=== PATIENT | male | born 1960 | race Hispanic/Latino ===

== ENCOUNTER 2022-02-18 11:46 | Emergency (ER) | payer SELFPAY ==
[2022-02-18] MEDS ORDERED: Ketorolac Tromethamine 30 MG/ML VIAL ONE (13:04)
== END 2022-02-18 13:32 | disposition home or self-care (01) ==
LOC: ERS 11:46
DX: N48.1 Balanitis (principal); I10 Essential (primary) hypertension; E11.9 Type 2 diabetes mellitus without complications; Z79.84 Long term (current) use of oral hypoglycemic drugs
CPT/HCPCS: 36416; 87070; 87077; 87186; 87205; 96372; 99283; J1885

== ENCOUNTER 2022-02-22 12:42 | Emergency (ER) | payer SELFPAY | END 2022-02-22 15:12 | disposition home or self-care (01) | LOC: ERS 12:42 | DX: N48.1 Balanitis (principal); E11.9 Type 2 diabetes mellitus without complications; I10 Essential (primary) hypertension | CPT/HCPCS: 99283 ==

== ENCOUNTER 2022-07-16 09:08 | Observation (INO) | payer OTHER ==
[2022-07-16 10:44] LABS: #Basophils 0.1 thou/uL (0.0-0.2); #Lymphocytes 1.3 thou/uL (1.20-3.40); #Monocytes 0.4 thou/uL (0.11-0.59); #Neutrophils 7.5 thou/uL (1.40-6.50); %Basophils 0.5 % (0.0-1.0); %Eosinophils 0.4 % (0.0-10.0); %Lymphocytes 13.5 % (21.0-51.0); %Monocytes 4.7 % (0.0-10.0); %Neutrophils 80.9 % (42.0-75.0); Hemoglobin 16.8 g/dL (14.0-18.0); Mean Corpuscular HGB CONC 35.3 g/dL (32.0-36.0); Mean Corpuscular Hemoglobin 33.7 pg (27.0-31.0); Mean Corpuscular Volume 95.6 fl (78.0-98.0); Mean Platelet Volume 7.1 fL (7.4-10.4); Platelet Count 252 10x3/uL (130-400); RBC Distribution Width 10.9 % (11.5-14.5); Red Blood Cell (RBC) Count 4.99 mill/uL (4.70-6.10); White Blood Cell (WBC) Count 9.3 10x3/uL (4.8-10.8)
[2022-07-16 11:08] LABS: ALT (SGPT) 24 U/L (8-55); AST (SGOT) 18 U/L (5-34); Albumin 4.1 g/dL (3.4-4.8); Alkaline Phosphatase 104 U/L (40-110); Anion Gap 18 mmol/L (10-20); BUN (Urea Nitrogen) 12 mg/dL (8.4-25.7); Bilirubin, Total 0.9 mg/dL (0.2-1.2); Calc. Creatinine Clearance 0 mL/min (70-130); Calcium 9.9 mg/dL (7.8-10.44); Carbon Dioxide 23 mmol/L (23-31); Chloride 97 mmol/L (98-107); Estimated GFR 93; Globulin 3.9 g/dL (2.4-3.5); Glucose 291 mg/dL (80-115); Potassium 4.1 mmol/L (3.5-5.1); Sodium 134 mmol/L (136-145)
[2022-07-16] MEDS ORDERED: Fentanyl 100 MCG/2 ML VIAL ONE (11:29)
[2022-07-16] MEDS ORDERED: Boostrix 0.5 ML (Tdap) VIAL (>/=7 yrs of age) ONE (11:29)
[2022-07-16] MEDS ORDERED: Cefepime 2 GM VIAL ONE (13:59)
[2022-07-16] MEDS ORDERED: VANCOMYCIN 1.75 GM/500 ML BAG 1.75 GM in Premix Bag 1 BAG IVPB SCH (14:30)
[2022-07-16] MEDS ORDERED: Senokot S 8.6-50 MG TAB PO PRN (14:46)
[2022-07-16] MEDS ORDERED: Guaifenesin DM 100-10/5 ML UDCUP PO PRN (14:46)
[2022-07-16] MEDS ORDERED: Dextrose 5% in Water 1,000 ML IV PRN (14:46)
[2022-07-16] MEDS ORDERED: Dextrose 50% Abboject 50 ML SYRINGE SLOW IVP PRN (14:46)
[2022-07-16] MEDS ORDERED: Ondansetron PF 4 MG/2 ML Vial IVP PRN (14:46)
[2022-07-16] MEDS ORDERED: Calcium Carbonate 500 MG ChewTAB PO PRN (14:46)
[2022-07-16] MEDS ORDERED: Bisacodyl 10 MG SUPP PR PRN (14:46)
[2022-07-16] MEDS ORDERED: Acetaminophen 325 MG TAB PO PRN (14:46)
[2022-07-16 15:10] LABS: Lactic Acid 1.5 mmol/L (0.5-2.2)
[2022-07-16] MEDS: cefTRIAXone\\ROCEPHIN 1 GM in Sodium Chloride 0.9% 100 ML IVPB SCH (18:07)
[2022-07-16] MEDS: Sodium Chloride 0.9% 1,000 ML IV SCH (18:07)
[2022-07-16] MEDS: metFORMIN 500 MG TAB PO SCH (18:07)
[2022-07-16] MEDS ORDERED: FLU VACC QS2022-23(6MOS UP)/PF 60 MCG/0.5 ML SYRINGE IM ONE (18:15)
[2022-07-16 20:19] VITALS: BMI 27.8
[2022-07-16] MEDS: HumaLOG 300 UNITS/3 ML VIAL SC PRN (21:11)
[2022-07-16] MEDS: Atorvastatin Calcium 40 MG TAB PO SCH (21:11)
[2022-07-17] MEDS: HYDROcodone/Acetaminophen 5/325 mg Tablet PO PRN ×3 (00:10→10:06)
[2022-07-17] MEDS: Sodium Chloride 0.9% 1,000 ML IV SCH (03:26)
[2022-07-17] MEDS: Vancomycin 1 GM in Premix Bag 1 BAG IVPB SCH ×2 (03:26→15:00)
[2022-07-17 05:13] LABS: #Eosinphils 0.1 thou/uL (0.0-0.7); #Lymphocytes 1.3 thou/uL (1.20-3.40); #Monocytes 0.4 thou/uL (0.11-0.59); %Basophils 0.7 % (0.0-1.0); %Eosinophils 1.6 % (0.0-10.0); %Lymphocytes 22.7 % (21.0-51.0); %Monocytes 6.9 % (0.0-10.0); %Neutrophils 68.1 % (42.0-75.0); Hemoglobin 13.9 g/dL (14.0-18.0); Mean Corpuscular HGB CONC 35.1 g/dL (32.0-36.0); Mean Corpuscular Hemoglobin 33.9 pg (27.0-31.0); Mean Corpuscular Volume 96.7 fl (78.0-98.0); Mean Platelet Volume 6.9 fL (7.4-10.4); Platelet Count 215 10x3/uL (130-400); RBC Distribution Width 10.8 % (11.5-14.5); Red Blood Cell (RBC) Count 4.11 mill/uL (4.70-6.10); White Blood Cell (WBC) Count 5.9 10x3/uL (4.8-10.8)
[2022-07-17 05:30] LABS: ALT (SGPT) 15 U/L (8-55); AST (SGOT) 14 U/L (5-34); Albumin 3.2 g/dL (3.4-4.8); Alkaline Phosphatase 70 U/L (40-110); Anion Gap 13 mmol/L (10-20); BUN (Urea Nitrogen) 12 mg/dL (8.4-25.7); Bilirubin, Total 1.1 mg/dL (0.2-1.2); Calc. Creatinine Clearance 111 mL/min (70-130); Calcium 8.4 mg/dL (7.8-10.44); Carbon Dioxide 20 mmol/L (23-31); Chloride 104 mmol/L (98-107); Estimated GFR 103; Globulin 2.9 g/dL (2.4-3.5); Glucose 229 mg/dL (80-115); Potassium 3.8 mmol/L (3.5-5.1); Protein, Total 6.1 g/dL (5.8-8.1); Sodium 133 mmol/L (136-145)
[2022-07-17] MEDS: HumaLOG 300 UNITS/3 ML VIAL SC PRN ×4 (06:11→21:37)
[2022-07-17] MEDS: Lisinopril/Hydrochlorothiazide 20 mg/12.5 mg Tablet PO SCH (10:03)
[2022-07-17] MEDS: Amlodipine 5 MG TAB PO SCH (10:04)
[2022-07-17] MEDS: metFORMIN 500 MG TAB PO SCH ×2 (10:04→16:50)
[2022-07-17] MEDS ORDERED: Clotrimazole 1 % Cream 30 GM TUBE TOP SCH (10:15)
[2022-07-17] MEDS ORDERED: Fluconazole 100 MG TAB PO SCH (10:15)
[2022-07-17] MEDS ORDERED: Clotrimazole 1% Cream 15 GM TUBE TOP SCH (10:15)
[2022-07-17] MEDS: cefTRIAXone\\ROCEPHIN 1 GM in Sodium Chloride 0.9% 100 ML IVPB SCH (16:50)
[2022-07-17] MEDS: Atorvastatin Calcium 40 MG TAB PO SCH (21:37)
[2022-07-17] MEDS: Clotrimazole 1 % Cream 30 GM TUBE TOP SCH (21:38)
[2022-07-18 03:06] LABS: #Eosinphils 0.1 thou/uL (0.0-0.7); #Lymphocytes 1.7 thou/uL (1.20-3.40); #Monocytes 0.5 thou/uL (0.11-0.59); #Neutrophils 3.9 thou/uL (1.40-6.50); %Basophils 0.4 % (0.0-1.0); %Eosinophils 2.1 % (0.0-10.0); %Lymphocytes 27.1 % (21.0-51.0); %Monocytes 7.5 % (0.0-10.0); Hemoglobin 15.3 g/dL (14.0-18.0); Mean Corpuscular HGB CONC 35.1 g/dL (32.0-36.0); Mean Corpuscular Hemoglobin 33.8 pg (27.0-31.0); Mean Corpuscular Volume 96.5 fl (78.0-98.0); Mean Platelet Volume 7.4 fL (7.4-10.4); Platelet Count 207 10x3/uL (130-400); RBC Distribution Width 10.8 % (11.5-14.5); Red Blood Cell (RBC) Count 4.51 mill/uL (4.70-6.10); White Blood Cell (WBC) Count 6.2 10x3/uL (4.8-10.8)
[2022-07-18 03:21] LABS: Vancomycin, Trough 7.7 ug/mL
[2022-07-18 03:32] LABS: Anion Gap 14 mmol/L (10-20); BUN (Urea Nitrogen) 17 mg/dL (8.4-25.7); Calc. Creatinine Clearance 103 mL/min (70-130); Calcium 8.9 mg/dL (7.8-10.44); Carbon Dioxide 23 mmol/L (23-31); Chloride 101 mmol/L (98-107); Estimated GFR 100; Glucose 259 mg/dL (80-115); Potassium 3.8 mmol/L (3.5-5.1); Sodium 134 mmol/L (136-145)
[2022-07-18] MEDS: Vancomycin 1 GM in Premix Bag 1 BAG IVPB SCH ×4 (04:23→12:24)
[2022-07-18] MEDS: HumaLOG 300 UNITS/3 ML VIAL SC PRN (06:11)
[2022-07-18] MEDS ORDERED: Fluconazole 100 MG TAB PO SCH (09:00)
[2022-07-18] MEDS: Amlodipine 5 MG TAB PO SCH (09:32)
[2022-07-18] MEDS: Lisinopril/Hydrochlorothiazide 20 mg/12.5 mg Tablet PO SCH (09:32)
[2022-07-18] MEDS: metFORMIN 500 MG TAB PO SCH (09:33)
[2022-07-18] MEDS: Clotrimazole 1 % Cream 30 GM TUBE TOP SCH (09:33)
[2022-07-18 10:01] VITALS: BP 155/83; TEMP 98.5
== END 2022-07-18 13:35 | disposition home or self-care (01) ==
LOC: ERS 09:08 → 2SW 14:40
PROVIDERS: ADMIT Internal Medicine; ATTEND Internal Medicine
DX: L03.115 Cellulitis of right lower limb (principal); T65.91XA Toxic effect of unspecified substance, accidental (unintentional), initial encounter; T25.521A Corrosion of first degree of right foot, initial encounter; U07.1 COVID-19; E11.9 Type 2 diabetes mellitus without complications; E78.5 Hyperlipidemia, unspecified; I10 Essential (primary) hypertension; Z79.84 Long term (current) use of oral hypoglycemic drugs; Z79.899 Other long term (current) drug therapy; Z88.0 Allergy status to penicillin; Z89.022 Acquired absence of left finger(s); Y93.H3 Activity, building and construction; Y92.69 Other specified industrial and construction area as the place of occurrence of the external cause; Y99.0 Civilian activity done for income or pay
CPT/HCPCS: 36415; 36416; 80048; 80053; 80202; 83605; 85025; 87040; 90471; 90715; 93923; 96365; 96372; 96374; 96375; 96376; G0378; J0692; J0696; J1650; J1815; J3010; J3370; J3370-JW; J3490; J7050; U0003; U0005